=== PATIENT | male | born 1935 | race Caucasian/White ===

== ENCOUNTER 2017-11-13 11:44 | Day surgery (SDC) | payer MEDICARE, OTHER ==
[~2017-11-13 11:44] MED LIST: Buffered Lidocaine 0.9% SYRIN* 5 ML/SYR SYRINGE INTRADERM ONE; Dexamethasone IV* 4 MG/ML 1 ML (4 MG) IV SLOW PU ONE; Famotidine IV* 10 MG/ML 2 ML (20 mg) IV ONE
[2017-11-13] MEDS ORDERED: ceFAZolin 2 GM PREMIX (*) 2 GM/50 ML BAG IVPB ONE (12:09)
[2017-11-13] MEDS ORDERED: Famotidine IV* 10 MG/ML 2 ML (20 mg) ONE (12:09)
[2017-11-13] MEDS ORDERED: Dexamethasone IV* 4 MG/ML 1 ML (4 MG) ONE (12:09)
[2017-11-13] MEDS ORDERED: Midazolam* 1 MG/ML 2 ML VIAL (2 MG) ONE (15:27)
[2017-11-13] MEDS ORDERED: fentaNYL* 50 MCG/ML 2 ML VIAL (100 MCG VIAL) ONE (15:27)
[2017-11-13] MEDS ORDERED: Ketorolac INJ* 30 MG/ML 1 ML VIAL IV PRN (15:29)
[2017-11-13] MEDS ORDERED: fentaNYL* 50 MCG/ML 2 ML VIAL (100 MCG VIAL) IV PRN (15:29)
[2017-11-13] MEDS ORDERED: Acetaminophen TAB* 325 MG PO PRN (15:29)
[2017-11-13] MEDS ORDERED: Naloxone* 0.4 MG/ML 1 ML VIAL IV PRN (15:29)
[2017-11-13] MEDS ORDERED: Ondansetron INJ* 2 MG/ML VIAL IV PRN (15:29)
[2017-11-13] MEDS ORDERED: Propofol* 10 MG/ML 20 ML BTL IV PUSH ONE (16:04)
[2017-11-13] MEDS ORDERED: Lidocaine 2% PF * 5 ML VIAL ONE (16:04)
[2017-11-13 17:16] VITALS: BP 149/77
== END 2017-11-13 17:39 | disposition home or self-care (01) ==
LOC: OR 11:44
PROVIDERS: ATTEND Plastic Surgery
DX: M65.312 Trigger thumb, left thumb (principal); M65.342 Trigger finger, left ring finger; I10 Essential (primary) hypertension; G25.81 Restless legs syndrome; K21.9 Gastro-esophageal reflux disease without esophagitis
CPT/HCPCS: J0690; J1100; J2250; J2704; J3010